=== PATIENT | female | born 1990 | race American Indian/Alaskan Native ===

== ENCOUNTER 2018-12-16 21:31 | Emergency (ER) | payer SELFPAY ==
[2018-12-16 21:51] VITALS: BP 121/63
--- NOTE | 2018-12-16 22:23 | Event Note ---
ED Screening Note Date of service: 12/16/18 Time: 22:17 ED Screening Note: 28 y/o for having a miscarriage on Monday was seen at [facility] and was told to come here tonight to have a D/C. Patient does not have OB provider. Patient decides to leave. Patient declines to be evaluated. This initial assessment/diagnostic orders/clinical plan/treatment(s) is/are subject to change based on patients health status, clinical progression and re- assessment by fellow clinical providers in the ED. Further treatment and workup at subsequent clinical providers discretion. Patient/guardian urged not to elope from the ED as their condition may be serious if not clinically assessed and managed. Initial orders include:
== END 2018-12-16 23:55 | disposition left against medical advice (07) ==
LOC: ED 21:31
DX: O26.891 Other specified pregnancy related conditions, first trimester (principal); Z53.21 Procedure and treatment not carried out due to patient leaving prior to being seen by health care provider